=== PATIENT | female | born 1975 | race African-American/Black ===

== ENCOUNTER 2017-04-26 10:33 | Emergency (ER) | payer OTHER ==
[~2017-04-26] VITALS: Ht 162.6 cm; Wt 100.0 kg
[~2017-04-26 10:33] MED LIST: CYCL5TAB PO; DICL50 PO; LISI2.5T3 PO; Z.0.BCPILL PO; Z.0.UNKNOWN
[2017-04-26 10:34] VITALS: BP 137/99; PULSE 95; RESP 16; TEMP 98.1; O2SAT 98
--- NOTE | 2017-04-26 10:47 | PD ---
HPI Chief Complaint: Pain: Acute or Chronic Time Seen by Provider: 10:45 Travel History International Travel<30 days: No Contact w/Intl Traveler<30days: No Traveled to known affect area: No History of Present Illness HPI 41-year-old female presents the emergency department with right calf pain and tenderness. 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 Patient states he stepped down off her her bus and stepped onto a curb causing her foot slipped, which causes sudden pain in the right posterior calf. Patient went to urgent care for follow-up today and there was bruising noted in the medial posterior calf. She was sent here for evaluation for possible DVT. Patient states the pain is worse with ambulation. She denies numbness, tingling, or pain in the ankle or foot. She has no other injury. Pain is about a 6 out of 10 at rest and 9 out of 10 with ambulation. Patient is able to ambulate to the room however. Patient denies cough, shortness of breath, or chest pain. She has no known drug allergies. PFS Past Medical History Hypertension: Yes ?: Not : 1 Para: 1 Past Surgical History Other Surgery: Yes (SINUS SURGERY) Social History Alcohol Use: Yes (OCCAS) Tobacco Use: No Substance Use: No Allergies-Medications (Allergen,Severity, Reaction): Coded Allergies: No Known Allergies (Verified , 04/26/17) Reported Meds & Prescriptions Reported Meds & Active Scripts Active Reported Omeprazole 20 Mg Tab 20 Mg PO DAILY Aspirin 81 (Aspirin) 81 Mg Tabdr 81 Mg PO DAILY Lisinopril 20 Mg Tab 20 Mg PO DAILY Review of Systems Except as stated in HPI: all other systems reviewed are Neg General / Constitutional: No: Fever Eyes: No: Visual changes HENT: No: Headaches Cardiovascular: No: Chest Pain or Discomfort Respiratory: No: Shortness of Breath Gastrointestinal: No: Abdominal Pain Genitourinary: No: Dysuria Musculoskeletal: Positive: Myalgias, Limited ROM, Pain (see history of present illness) Skin: No Rash Neurologic: No: Weakness Psychiatric: No: Depression Endocrine: No: Polydipsia Hematologic/Lymphatic: No: Easy Bruising Physical Exam Narrative GENERAL: Patient appears no acute distress. She is moderately obese. SKIN: Warm and dry. Normal color. Normal turgor. There is a small half- dollar sized area of ecchymosis in the right medial posterior calf. There is no significant edema otherwise. HEAD: Atraumatic. Normocephalic. EYES: Pupils equal and round. No scleral icterus. No injection or drainage. ENT: No nasal bleeding or discharge. Mucous membranes pink and moist. Pharynx is clear. Airway is patent. NECK: Trachea midline. Supple and nontender. CARDIOVASCULAR: Regular rate and rhythm. RESPIRATORY: No accessory muscle use. Clear to auscultation. Breath sounds equal bilaterally. MUSCULOSKELETAL: Extremities without clubbing, cyanosis, or edema. No obvious deformities. Patient is tenderness with palpation of the right calf, mainly in the upper posterior aspect. Patient has positive Homans sign. There is no significant findings of the right ankle, knee, or foot. NEUROLOGICAL: Awake and alert. No obvious cranial nerve deficits. Motor grossly within normal limits. Five out of 5 muscle strength in the arms and legs. Normal speech. PSYCHIATRIC: Appropriate mood and affect; insight and judgment normal. Data Data Last Documented VS Vital Signs Date Time Temp Pulse Resp B/P Pulse Ox O2 Delivery O2 Flow Rate FiO2 04/26/17 10:34 98.1 95 16 137/99 98 Orders Us Leg Venous Doppler (04/26/17 10:47) MDM Medical Decision Making Medical Screen Exam Complete: Yes Emergency Medical Condition: Yes Differential Diagnosis Workplace injury. Right calf strain. Possible DVT. Possible muscle tear. Narrative Course Patient is medically stable at time of exam. Ultrasound right lower extremity is ordered. Ultrasound right lower extremity is negative for DVT. Patient is felt to have a calf strain with muscle tear. Romulo wrap is applied to the right lower extremity. Patient is advised that she may benefit from a compression stocking which would help her discomfort. Patient is given ibuprofen 600 mg 4 times a day. Patient is to avoid extended standing or walking any great distance. She'll follow-up with Worker's Comp. in the next week to ensure improvement. Diagnosis Primary Impression: Work place accident Additional Impressions: Right calf pain Gastrocnemius muscle tear Qualified Code: S86.811D - Gastrocnemius muscle tear, right, subsequent encounter Patient Instructions: General Instructions, Muscle Strain (ED) Additional Instructions: Ultrasound right lower extremity is negative for DVT. Patient is felt to have a calf strain with muscle tear. Romulo wrap is applied to the right lower extremity. Patient is advised that she may benefit from a compression stocking which would help her discomfort. Patient is given ibuprofen 600 mg 4 times a day. Patient is to avoid extended standing or walking any great distance. She'll follow-up with Worker's Comp. in the next week to ensure improvement. Med/Other Pt SpecificInfo: Prescription(s) given Disposition: 01 DISCHARGE HOME Condition: Stable Rusty Hamilton Apr 26, 2017 10:47
[2017-04-26] MEDS ORDERED: LISI-515 PO (11:23)
[2017-04-26] MEDS ORDERED: OMEP20TA PO (11:23)
[2017-04-26] MEDS ORDERED: ASPI-110 PO (11:23)
--- NOTE | 2017-04-26 11:49 | RADRPT ---
EXAM DATE/TIME: 04/26/2017 11:19 [facility] COMPARISON: No previous studies available for comparison. INDICATIONS : Right leg pain. MEDICAL HISTORY : Hypertension. SURGICAL HISTORY : Sinus surgery. ENCOUNTER: Initial ACUITY: 3 days PAIN SCORE: 8/10 LOCATION: Right leg. TECHNIQUE: Venous ultrasound of the leg was performed from the inguinal ligament to the proximal calf. Real-carmita e, color Doppler and spectral tracing, compression and augmentation techniques were used. FINDINGS: There is normal compressibility of the deep venous system from the inguinal region to the proximal ca lf. No echogenic clot is seen in the lumen of the common femoral, femoral, popliteal, and posterior tibial veins. There is a normal response of the venous system to proximal and distal augmentation an d respiration. CONCLUSION: No evidence of DVT. Mikael Peters MD on April 26, 2017 at 11:46 Board Certified Radiologist. This report was verified electronically.
[2017-04-26] MEDS ORDERED: NON-500T13 PO (12:00)
[2017-04-26] MEDS ORDERED: IBUP-232 PO (12:00)
== END 2017-04-26 12:22 | disposition home or self-care (01) ==
LOC: NEPK 10:33
DX: M79.661 Pain in right lower leg (principal); S86.811A Strain of other muscle(s) and tendon(s) at lower leg level, right leg, initial encounter; I10 Essential (primary) hypertension; W01.0XXA Fall on same level from slipping, tripping and stumbling without subsequent striking against object, initial encounter; Y99.0 Civilian activity done for income or pay
CPT/HCPCS: 93971